=== PATIENT | female | born 1930 | race Caucasian/White ===

== ENCOUNTER → 2016-12-18 | Outpatient (CLI) | payer MEDICARE ==
[~2016-12-18] MED LIST: ALDACTONE25 MG PO; COZAAR100 MG PO; LASIX20 MG PO; LIPITOR10 MG PO; LOPRESSOR50 MG PO; NORCO 5-325 TA1 EACH PO; THERA-VITE W/ B1 TAB PO; TYLENOL ARTHRI650 MG PO; ULTRAM50 MG PO; VITAMIN D-32000 UNI1 PO; ZOLOFT50 MG PO
== END ==
LOC: LBOND 15:56
DX: D48.5 Neoplasm of uncertain behavior of skin (principal); R20.3 Hyperesthesia; R68.89 Other general symptoms and signs